=== PATIENT | female | born 1950 | race Caucasian/White ===

== ENCOUNTER → 2021-02-02 09:52 | Outpatient (CLI) | payer BC, SELFPAY ==
[2021-02-02 10:34] LABS: COVID19 -Nasal RAPID POSITIVE (Negative)
== END ==
PROVIDERS: Referring Provider Student in an Organized Health Care Education/Training Program; Visit Provider Student in an Organized Health Care Education/Training Program
DX: U07.1 COVID-19 (principal)
CPT/HCPCS: 87635